=== PATIENT | male | born 1995 | race Caucasian/White ===

== ENCOUNTER 2018-11-15 08:56 | Emergency (ER) | payer OTHER ==
[~2018-11-15] VITALS: Ht 180.3 cm; Wt 77.1 kg
[~2018-11-15 08:56] MED LIST: AMIT25; AMPHETAMINE SALTS; CEPH250A PO; CEPH250SUA PO; CEPH500 PO; CLON.1; CODACE30 PO; CODACEE120 PO; CRUTCH3 USE; CYCL10 PO; IBUP600 PO; IBUP800 PO; METPHE18ER; METPHE18ER PO; METPHE27ER; METPHE27ER PO; Norco 5-325 Ta1 EACH PO; PERM5TC TOP; PROM12.5S PR; PROM25S PR; ROZEREM; RXCLIN PO; RXCODACESY PO; RXCODACET PO; SEROQUEL; SERT25 PO; SERT50; SULTRIDS PO; Zofran Odt8 MG SL; [UNRECOGNIZED DRUG - REMARK]
[2018-11-15] MEDS ORDERED: NAPR550 PO (11:44)
[2018-11-15] MEDS ORDERED: Ultram50 MG PO ×2 (11:44→11:45)
== END 2018-11-15 11:56 | disposition home or self-care (01) ==
LOC: ER 08:56
DX: S46.911A Strain of unspecified muscle, fascia and tendon at shoulder and upper arm level, right arm, initial encounter (principal); F32.9 Major depressive disorder, single episode, unspecified; F90.9 Attention-deficit hyperactivity disorder, unspecified type; F17.210 Nicotine dependence, cigarettes, uncomplicated; X58.XXXA Exposure to other specified factors, initial encounter
CPT/HCPCS: 73030; 99283-25

== ENCOUNTER 2019-11-30 08:05 | Emergency (ER) | payer SELFPAY ==
[~2019-11-30] VITALS: Ht 177.8 cm; Wt 78.0 kg
[~2019-11-30 08:05] MED LIST changes: +NAPR550 PO; +Ultram50 MG PO
[2019-11-30 10:12] LABS: Body Fluid Crystals NEG (NEGATIVE)
[2019-11-30 11:04] LABS: WBC Count, Synovial Fluid 1038 /mm3 (0-180)
[2019-11-30 11:06] LABS: RBC Count, Synovial Fluid 48 /mm3 (0-0)
[2019-11-30 11:09] LABS: Lymphs, Synovial Fluid 19 % (0-15); Monocytes/Macrophages, Synovia 70 % (0-65); Neutrophils, Synovial Fluid 11 % (0-24)
[2019-11-30 11:10] LABS: Color, Synovial Fluid Yellow (None-P Yel)
[2019-11-30 11:11] LABS: Appearance, Synovial Fluid Hazy (Clear)
== END 2019-11-30 11:21 | disposition home or self-care (01) ==
LOC: ER 08:05
PROVIDERS: Physician Assistant
DX: M25.461 Effusion, right knee (principal); F17.210 Nicotine dependence, cigarettes, uncomplicated
CPT/HCPCS: 20610; 73562-RT; 89051; 89060; 96372-59; 99283-25; J3301

== ENCOUNTER 2024-10-26 16:25 | Emergency (ER) | payer OTHER ==
[~2024-10-26] VITALS: Ht 180.3 cm; Wt 86.2 kg
[2024-10-26] MEDS ORDERED: Ketorolac Tromethamine 15mg Vial IM ONE (16:45)
[2024-10-26] MEDS ORDERED: Ketorolac Tromethamine 15mg Vial IV ONE (17:30)
[2024-10-26] MEDS ORDERED: Morphine Sulfate 4 MG/1 ML Injection ONE (18:01)
[2024-10-26] MEDS ORDERED: Morphine Sulfate 4 MG/1 ML Injection IV ONE (18:10)
[2024-10-26] MEDS ORDERED: NS 1,000 ML IV ONE (18:27)
[2024-10-26 20:01] VITALS: BP 146/90
== END 2024-10-26 20:01 | disposition home or self-care (01) ==
LOC: ER 16:25
DX: S43.014A Anterior dislocation of right humerus, initial encounter (principal); S43.034A Inferior dislocation of right humerus, initial encounter; F17.210 Nicotine dependence, cigarettes, uncomplicated; V29.91XA Electric (assisted) bicycle rider (driver) (passenger) injured in unspecified traffic accident, initial encounter
CPT/HCPCS: 23650; 73030; 96374-59; 96375-59; 99152; 99283-25; J1885; J2270; J2704; J7030